=== PATIENT | female | born 1990 | race Caucasian/White ===

== ENCOUNTER 2021-08-22 20:40 | Inpatient (IN) ==
[2021-08-22] MEDS ORDERED: miSOPROStoL 200 MCG TABLET RECTAL PRN (20:56)
[2021-08-22] MEDS ORDERED: BUTORPHANOL 2 MG/ML VIAL IV PRN (20:56)
[2021-08-22] MEDS ORDERED: OXYTOCIN/LR 20 UNIT/1,000 ML BAG IV ONE (20:56)
[2021-08-22] MEDS ORDERED: MEPERIDINE 50 MG/1 ML VIAL IV PRN (20:56)
[2021-08-22] MEDS ORDERED: TRANEXAMIC ACID 1,000 MG in SODIUM CHLORIDE 0.9% 100 ML IV PRN (20:56)
[2021-08-22] MEDS ORDERED: CARBOPROST TROMETHAMINE 250 MCG/ML AMP IM PRN (20:56)
[2021-08-22] MEDS ORDERED: METHYLERGONOVINE 0.2 MG/1 ML AMP IM PRN (20:56)
[2021-08-22 21:24] LABS: Basophils % 0.3 % (0.0-0.8); Eosinophils # 0.2 10*3/uL (0.0-0.87); Eosinophils % 1.3 % (0.00-10.9); Hematocrit 33.4 VOL% (35.7-47.0); Hemoglobin 10.9 GM/DL (12.0-16.0); Immature Granulocytes % 0.5 %; Immature Granulocytes Absolute 0.06 #; Lymphocytes # 2.6 10*3/uL (1.4-4.0); Lymphocytes % 20.9 % (21.3-54.2); Mean Corpuscular HGB Conc 32.6 GM/DL (32-36); Mean Corpuscular Volume 84.1 FL (87-102); Mean Platelet Volume 12.5 FL (9.6-12.0); Monocytes # 0.6 10*3/uL (0.11-0.8); Monocytes % 4.4 % (1.7-12.7); Neutrophils % 72.6 % (38.7-73.9); Platelet Count 228 T/CUMM (130-400); Red Blood Count 3.97 MC/CUMM (3.8-5.5); Red Cell Distribution Width 13.5 % (9.3-17.3); White Blood Count 12.6 T/CUMM (4-12)
[2021-08-23] MEDS: LACTATED RINGERS 1,000 ML IV SCH ×2 (09:16→10:35)
[2021-08-23] MEDS: OXYTOCIN/LR 20 UNIT/1,000 ML BAG IV SCH ×2 (09:17→19:58)
[2021-08-23] MEDS ORDERED: diphenhydrAMINE 50 MG/1 ML VIAL IV PRN ×2 (09:21)
[2021-08-23] MEDS ORDERED: FAMOTIDINE 20 MG/2 ML VIAL IV ONE (09:21)
[2021-08-23] MEDS ORDERED: ePHEDrine 50 MG/ML VIAL IV PRN (09:21)
[2021-08-23] MEDS ORDERED: CITRIC ACID/SODIUM CITRATE 30 ML UDCUP PO ONE (09:21)
[2021-08-23] MEDS ORDERED: NALOXONE 0.4 MG/ML VIAL IV PRN (09:21)
[2021-08-23] MEDS: ONDANSETRON 4 MG/2 ML VIAL IV PRN ×3 (09:25→19:57)
[2021-08-23] MEDS ORDERED: fentaNYL 2 MCG/ROPIV 0.2% EPID 100 ML EPIDURAL SCH (09:30)
[2021-08-23 11:50] LABS: Mucus,Urine Few /LPF (Occasional); RBC,Urine 1 /HPF (0-4); Squamous Epithelial Cell,Urine Occasional /HPF (0-10)
[2021-08-23 11:51] LABS: Bilirubin,Urine Negative (Negative); Blood, Urine Negative (Negative); Glucose,Urine (UA) Negative (Negative); Ketones,Urine Negative (Negative); Nitrite,Urine Negative (Negative); Protein,Urine Negative (Negative); Urine Appearance Clear (Clear); Urine Color Yellow (Yellow); Urine Specific Gravity 1.025 (1.001-1.035); Urine Urobilinogen 0.2 eU/dL (<2.0)
[2021-08-23] MEDS ORDERED: miSOPROStoL 200 MCG TABLET ONE (15:58)
[2021-08-23] MEDS ORDERED: METHYLERGONOVINE 0.2 MG/1 ML AMP ONE (15:58)
[2021-08-23] MEDS ORDERED: CARBOPROST TROMETHAMINE 250 MCG/ML AMP IM ONE (15:58)
[2021-08-23 16:35] LABS: Cord Arterial Blood HCO3 20.1 MMOL/L
[2021-08-23 16:37] LABS: Cord Venous Blood HCO3 20.9 MMOL/L; Cord Venous Blood PCO2 48.1 MMHG; Cord Venous Blood PO2 23.6
[2021-08-23] MEDS ORDERED: BENZOCAINE 20%/MENTHOL 0.5% SPRAY 56 GM CAN TOP PRN (19:50)
[2021-08-23] MEDS ORDERED: WITCH HAZEL PADS 100/JAR TOP PRN (19:50)
[2021-08-23] MEDS ORDERED: ACETAMINOPHEN 325 MG TABLET PO PRN (19:50)
[2021-08-23] MEDS ORDERED: HYDROCORTISONE 2.5% RECTAL CREAM 30 GM TUBE TOP PRN (19:50)
[2021-08-23] MEDS ORDERED: BISACODYL 10 MG SUPP RECTAL PRN (19:50)
[2021-08-23] MEDS ORDERED: oxyCODONE/ACETAMINOPHEN 5-325 MG TABLET PO PRN (19:50)
[2021-08-23] MEDS ORDERED: LANOLIN 50% CREAM 0.3 OZ TUBE TOP PRN (19:50)
[2021-08-23] MEDS ORDERED: MEASLES/MUMPS/RUBELLA VACCINE 0.5 ML VIAL SUBCUT ONE (19:50)
[2021-08-23] MEDS ORDERED: ONDANSETRON 4 MG/2 ML VIAL IV PRN (19:50)
[2021-08-23] MEDS: IBUPROFEN 800 MG TABLET PO PRN (19:56)
[2021-08-23] MEDS ORDERED: RHO(D) IMMUNE GLOBULIN 300 MCG SYRINGE IM ONE (20:00)
[2021-08-23] MEDS ORDERED: DIPH/TET/ACEL PERT BOOSTER VACCINE 0.5 ML VIAL IM ONE (20:30)
[2021-08-23] MEDS ORDERED: OXYTOCIN/LR 20 UNIT/1,000 ML BAG IV ONE (20:30)
[2021-08-23] MEDS: DOCUSATE SODIUM 100 MG CAPSULE PO SCH (21:16)
[2021-08-23] MEDS: oxyCODONE/ACETAMINOPHEN 5-325 MG TABLET PO PRN (21:20)
[2021-08-24] MEDS: oxyCODONE/ACETAMINOPHEN 5-325 MG TABLET PO PRN ×3 (04:02→20:32)
[2021-08-24 05:42] LABS: Basophils % 0.3 % (0.0-0.8); Eosinophils # 0.1 10*3/uL (0.0-0.87); Eosinophils % 0.8 % (0.00-10.9); Hematocrit 29.6 VOL% (35.7-47.0); Hemoglobin 9.6 GM/DL (12.0-16.0); Immature Granulocytes % 0.7 %; Immature Granulocytes Absolute 0.09 #; Lymphocytes # 2.4 10*3/uL (1.4-4.0); Lymphocytes % 17.8 % (21.3-54.2); Mean Corpuscular HGB Conc 32.4 GM/DL (32-36); Mean Corpuscular Volume 85.8 FL (87-102); Mean Platelet Volume 12.7 FL (9.6-12.0); Monocytes # 0.7 10*3/uL (0.11-0.8); Monocytes % 4.8 % (1.7-12.7); Neutrophils % 75.6 % (38.7-73.9); Platelet Count 188 T/CUMM (130-400); Red Blood Count 3.45 MC/CUMM (3.8-5.5); Red Cell Distribution Width 13.5 % (9.3-17.3); White Blood Count 13.5 T/CUMM (4-12)
[2021-08-24] MEDS: DOCUSATE SODIUM 100 MG CAPSULE PO SCH ×2 (08:38→20:30)
[2021-08-24] MEDS: IBUPROFEN 800 MG TABLET PO PRN ×2 (08:39→15:15)
[2021-08-24] MEDS ORDERED: RHO(D) IMMUNE GLOBULIN 300 MCG SYRINGE IM ONE (10:34)
[2021-08-25] MEDS: IBUPROFEN 800 MG TABLET PO PRN ×2 (01:42→07:13)
[2021-08-25] MEDS: DOCUSATE SODIUM 100 MG CAPSULE PO SCH ×2 (07:13→12:03)
[2021-08-25 07:25] VITALS: BP 123/66
[2021-08-25] MEDS ORDERED: DIPH/TET/ACEL PERT BOOSTER VACCINE 0.5 ML VIAL IM ONE (09:24)
== END 2021-08-25 11:30 | disposition home or self-care (01) | DRG 807 ==
LOC: N.LD 20:40 → N.OB 08-23 22:05
PROVIDERS: ADMIT Specialist; ATTEND Specialist